=== PATIENT | female | born 1950 | race Caucasian/White ===

== ENCOUNTER 2025-02-17 09:33 | Emergency (ER) | payer MEDICARE, OTHER ==
[2025-02-17] MEDS: Aspirin 81 MG Tab.Chew PO ONE (09:37)
[2025-02-17] MEDS: Metoprolol Tartrate 5 MG/5 ML SDV IVPUSH ONE ×2 (09:50→10:15)
[2025-02-17] MEDS: Metoprolol Tartrate 5 MG/5 ML SDV ONE (09:53)
[2025-02-17 09:54] LABS: BASOPHILS ABSOLUTE AUTO 0.04 10^3/uL (0.00-0.10); BASOPHILS PERCENT AUTO 0.6 % (0.0-1.0); EOSINOPHILS ABSOLUTE AUTO 0.08 10^3/uL (0.10-0.30); EOSINOPHILS PERCENT AUTO 1.2 % (1.0-3.0); HEMOGLOBIN 14.2 g/dL (12.0-16.0); LYMPHOCYTES ABSOLUTE AUTO 1.32 10^3/uL (1.00-4.00); LYMPHOCYTES PERCENT AUTO 20.5 % (20.0-40.0); MEAN CORPUSCULAR HEMOGLOBIN 28.8 pg (27.0-31.0); MEAN CORPUSCULAR HGB CONC 32.3 g/dL (32.0-36.0); MEAN CORPUSCULAR VOLUME 89.2 fL (82.0-92.0); MEAN PLATELET VOLUME 9.3 fL (7.4-10.4); MONOCYTES ABSOLUTE AUTO 0.61 10^3/uL (0.10-0.80); MONOCYTES PERCENT AUTO 9.5 % (2.0-8.0); NEUTROPHILS ABSOLUTE AUTO 4.38 10^3/uL (2.50-7.00); NEUTROPHILS PERCENT AUTO 68.2 % (50.0-70.0); PLATELET COUNT,PLT 218 10^3/uL (150-400); RED BLOOD CELL COUNT 4.93 10^6/uL (3.80-5.50); WHITE BLOOD CELL COUNT,WBC 6.43 10^3/uL (5.00-10.00)
[2025-02-17 10:12] LABS: ANION GAP 9.9 mmol/L (5-15); CALCIUM 9.2 mg/dL (8.7-10.3); CARBON DIOXIDE,CO2 30.2 mmol/L (21.0-32.0); CREATININE 0.91 mg/dL (0.51-1.17); EST CRCL DRUG DOSING (CG) 49.24 mL/min; POTASSIUM,K 4.1 mmol/L (3.5-5.1)
[2025-02-17] MEDS: Sodium Chloride 0.9% 1,000 ML IV SCH (10:35)
[2025-02-17] MEDS ORDERED: Diltiazem 125 MG in Sodium Chloride 0.9% 100 ML IV SCH (11:30)
[2025-02-17] MEDS: Heparin Sodium 5,000 Units/ML Vial IVPUSH ONE (11:38)
[2025-02-17] MEDS: Heparin Sodium/D5W 250 ML IV SCH (11:41)
[2025-02-17] MEDS: Diltiazem 25 MG/5 ML SDV IVPUSH ONE (11:51)
[2025-02-17] MEDS: Diltiazem 125 MG in Sodium Chloride 0.9% 100 ML IV SCH (11:57)
[2025-02-17 12:48] VITALS: BP 107/83; PULSE 57
== END 2025-02-17 12:15 ==
LOC: KA.ED 09:33
DX: I48.91 Unspecified atrial fibrillation (principal); Z88.2 Allergy status to sulfonamides
CPT/HCPCS: 71045; 80048; 83880; 84484; 85025; 96365; 96368; 96375; 96376; 99285-25; A9270-GY; J1644; J3490; J7030